=== PATIENT | female | born 1995 | race Caucasian/White ===

== ENCOUNTER 2021-02-23 02:54 | Emergency (ER) | payer OTHER ==
[2021-02-23 04:55] LABS: HEMOGLOBIN 12.8 gm/dl (12.3-15.3); RED BLOOD COUNT 4.68 M/UL (4.00-5.10); WHITE BLOOD COUNT 9.1 K/UL (4.5-11.0)
[2021-02-23 05:25] LABS: BUN/CREATININE RATIO 11 (0-10)
[2021-02-23 08:42] LABS: BORDETELLA PARAPERTUSSIS Not Detected (Not Detectd); BORDETELLA PERTUSSIS Not Detected (Not Detectd); CHLAMYDIA PNEUMONIAE Not Detected (Not Detectd); CORONAVIRUS HKU1 Not Detected (Not Detectd); CORONAVIRUS NL63 Not Detected (Not Detectd); CORONAVIRUS OC43 Not Detected (Not Detectd); CORONOAVIRUS 229E Not Detected (Not Detectd); HUMAN METAPNEUMOVIRUS Not Detected (Not Detectd); INFLUENZA A Not Detected (Not Detectd); INFLUENZA B Not Detected (Not Detectd); MYCOPLASMA PNEUMONIAE Not Detected (Not Detectd); PARAINFLUENZA VIRUS 1 Not Detected (Not Detectd); PARAINFLUENZA VIRUS 2 Not Detected (Not Detectd); PARAINFLUENZA VIRUS 3 Not Detected (Not Detectd); PARAINFLUENZA VIRUS 4 Not Detected (Not Detectd); RESPIRATORY SYNCYTIAL VIRUS Not Detected (Not Detectd)
[2021-02-23] MEDS ORDERED: BACTRIM DS TAB1 EACH PO (09:44)
[2021-02-23 10:20] LABS: SARS-CoV-2 NOT DETECTED (Not Detectd)
[2021-02-23 10:21] LABS: HUMAN RHINOVIRUS/ENTEROVIRUS DETECTED (Not Detectd)
[2021-02-23 17:55] LABS: ACINETOBACTER BAUMANNII Not Detected (Negative); CANDIDA ALBICANS Not Detected (Negative); CANDIDA KRUSEI Not Detected (Negative); CANDIDA TROPICALIS Not Detected (Negative); ENTEROCOCCUS Not Detected (Negative); ESCHERICHIA COLI Not Detected (Negative); HAEMOPHILUS INFLUENZAE Not Detected (Negative); KLEBSIELLA OXYTOCA Not Detected (Negative); KLEBSIELLA PNEUMONIAE Not Detected (Negative); KPC-CARBAPENEM-RESISTANCE GENE Not Detected (Negative); PROTEUS Not Detected (Negative); PSEUDOMONAS AERUGINOSA Not Detected (Negative); SERRATIA MARCESANS Not Detected (Negative); STREP AGALACTIAE (GROUP B) Not Detected (Negative); STREP PYOGENES (GROUP A) Not Detected (Negative); STREPTOCOCCUS Not Detected (Negative); vanA/B (VANCOMYCIN RESIST GENE Not Detected (Negative)
[2021-02-23 19:14] LABS: mecA (METHICILLIN RESIST GENE DETECTED (Negative)
[2021-02-23 19:15] LABS: STAPHYLOCOCCUS DETECTED (Negative); STAPHYLOCOCCUS AUREUS DETECTED (Negative)
== END 2021-02-23 10:10 | disposition home or self-care (01) ==
LOC: ER1 02:54
PROVIDERS: Emergency Medicine; Physician Assistant Medical
DX: N39.0 Urinary tract infection, site not specified (principal); Z20.822 Contact with and (suspected) exposure to COVID-19
CPT/HCPCS: 70450; 80053; 81001; 83605; 84703; 85025; 85652; 86140; 87040; 87077; 87150; 87186; 87633; 96374; 96375; 99284; J1885; J2405; J7030

== ENCOUNTER 2021-02-24 16:26 | Inpatient (IN) | payer OTHER ==
[~2021-02-24] VITALS: Ht 157.5 cm; Wt 56.7 kg
[~2021-02-24 16:26] MED LIST: BACTRIM DS TAB1 EACH PO
[2021-02-24 19:24] LABS: HEMOGLOBIN 13.2 gm/dl (12.3-15.3); RED BLOOD COUNT 4.83 M/UL (4.00-5.10); WHITE BLOOD COUNT 10.1 K/UL (4.5-11.0)
[2021-02-24 19:50] LABS: BUN/CREATININE RATIO 15 (0-10)
[2021-02-25 05:07] LABS: BUN/CREATININE RATIO 10 (0-10)
[2021-02-25 09:59] LABS: BUN/CREATININE RATIO 12 (0-10)
[2021-02-25] MEDS ORDERED: PROAIR HFA8.5 GM INH (10:14)
--- NOTE | 2021-02-25 16:59 | NUR ---
WHEN PATIENT ARRIVED TO FLOOR HER TEMPERATURE WAS 102.3,PATIENT HAD BEEN GIVEN TYLENOL PRIOR TO ARRIVING TO FLOOR. PATIENTS ROOM WAS COOLED DOWN, BLANKETS UNCOVERED, AND PATIENT WANTED TO TAKE A SHOWER, TEMPERATURE RECHECKED ONE HOUR LATER AND WAS 98.2. WILL CONTINUE TO MONITOR. DR. ARANGO MEDICAL STUDENT WAS MADE AWARE OF WHAT HAPPENED AND SAID HE WOULD TELL DR. JUNG.
--- NOTE | 2021-02-25 17:17 | NUR ---
DR. JUNG MADE AWARE OF PATIENT HAVING AN ELEVATED TEMP WHEN ARRIVING TO THE FLOOR AND IT HAD RESOLVED OVER AN HOUR PERIOD AND WAS NOW 98.2 DR. JUNG ALSO MADE AWARE OF THE FAMILY CONCERNS OF MENNINGITIS.
--- NOTE | 2021-02-25 19:46 | NUR ---
UPON ARRIVING TO THE FLOOR TO GET REPORT, PT HAD ORDERS TO BE TRANSFERRED TO PCU. APPROX. 1909: SPOKE WITH MANUFACTURING ACCOUNTANT REGARDING UPDATE ON PCU BED. APPROX. 1916: ATTEMPTED TO CALL REPORT TO PCU. . 1926: CALLED REPORT TO SANTI IN PCU. PT BEING TRANSFERRED TO ROOM 6109. APPROX. 1945: PT TRANSPORTED TO PCU, ROOM 6109, BY RESOURCE RN AND CERAMIC DESIGN ENGINEER. PT STABLE AT THE TIME OF TRANSFER.
[2021-02-26 04:55] LABS: RED BLOOD COUNT 4.13 M/UL (4.00-5.10); WHITE BLOOD COUNT 5.8 K/UL (4.5-11.0)
[2021-02-26 04:58] LABS: BUN/CREATININE RATIO 12 (0-10)
[2021-02-27 04:34] LABS: HEMOGLOBIN 11.3 gm/dl (12.3-15.3); RED BLOOD COUNT 4.28 M/UL (4.00-5.10)
[2021-02-27 04:37] LABS: WHITE BLOOD COUNT 7.5 K/UL (4.5-11.0)
[2021-02-27 05:01] LABS: BUN/CREATININE RATIO 12 (0-10)
--- NOTE | 2021-02-27 09:45 | NUR ---
CONSULT CALLED TO DR KRUGER THIS AM. ARRIVES TO SEE PATIENT AND STATES THAT HE SPOKE WITH DR JARRETT.
[2021-02-28 03:55] LABS: HEMOGLOBIN 11.1 gm/dl (12.3-15.3); RED BLOOD COUNT 4.23 M/UL (4.00-5.10); WHITE BLOOD COUNT 6.1 K/UL (4.5-11.0)
[2021-02-28 04:58] LABS: BUN/CREATININE RATIO 15 (0-10)
[2021-03-01 09:13] LABS: HBSAG SCREEN Negative (Negative); HEP B CORE AB, TOT Negative (Negative); HEP C VIRUS AB >11.0 (0.0-0.9)
[2021-03-02 03:55] LABS: WHITE BLOOD COUNT 6.1 K/UL (4.5-11.0)
[2021-03-02 03:58] LABS: RED BLOOD COUNT 3.73 M/UL (4.00-5.10)
[2021-03-02 04:15] LABS: BUN/CREATININE RATIO 13 (0-10)
[2021-03-03 03:41] LABS: HEMOGLOBIN 9.7 gm/dl (12.3-15.3); RED BLOOD COUNT 3.68 M/UL (4.00-5.10); WHITE BLOOD COUNT 6.1 K/UL (4.5-11.0)
[2021-03-03 03:58] LABS: BUN/CREATININE RATIO 14 (0-10)
[2021-03-03] MEDS ORDERED: LOPRESSOR 25 MG25 MG PO (20:51)
[2021-03-03] MEDS ORDERED: BUDESONIDE0.5 MG/2 M NEB (20:51)
[2021-03-03] MEDS ORDERED: IPRAT-ALBUT 0.5-3 ML NEB (20:51)
[2021-03-03] MEDS ORDERED: DOCUSATE SODIU100 MG PO (20:51)
[2021-03-03] MEDS ORDERED: THERAGRAN M TAB1 EA PO (20:51)
[2021-03-03] MEDS ORDERED: FAMOTIDINE20 MG PO (20:51)
[2021-03-03] MEDS ORDERED: HYDROCODON-ACE1 EAC2 PO (20:51)
[2021-03-03] MEDS ORDERED: ACETAMINOPHEN500 MG PO (20:51)
[2021-03-03] MEDS ORDERED: UNASYN 3 GM VIAL3 GM IV (20:51)
[2021-03-03] MEDS ORDERED: CYCLOBENZAPRINE10 MG PO (20:51)
[2021-03-03] MEDS ORDERED: CUBICIN 500 MG500 MG IV (20:51)
[2021-03-03] MEDS ORDERED: POLYETHYLENE GL17 GM PO (20:51)
[2021-03-04 04:10] LABS: HEMOGLOBIN 10.4 gm/dl (12.3-15.3); RED BLOOD COUNT 3.98 M/UL (4.00-5.10); WHITE BLOOD COUNT 5.5 K/UL (4.5-11.0)
[2021-03-04 04:39] LABS: BUN/CREATININE RATIO 15 (0-10)
== END 2021-03-05 14:22 | disposition short-term general hospital (02) | DRG 872 ==
LOC: ER1 16:26 → CDU 23:47 → MED SURG 4 23:47 → PROG CARE 23:47 → MED SURG 4 02-25 14:38 → PROG CARE 02-25 20:02
PROVIDERS: Internal Medicine Infectious Disease; Physician Assistant; ADMIT Internal Medicine
PROC: B24BZZZ Ultrasonography of Heart with Aorta (ICD-10-PCS; principal; 2021-02-26)
DX: A41.02 Sepsis due to Methicillin resistant Staphylococcus aureus (principal); E87.2 Acidosis; Z20.822 Contact with and (suspected) exposure to COVID-19; E87.1 Hypo-osmolality and hyponatremia; I82.C11 Acute embolism and thrombosis of right internal jugular vein; R65.20 Severe sepsis without septic shock; R00.0 Tachycardia, unspecified; D69.6 Thrombocytopenia, unspecified; B19.20 Unspecified viral hepatitis C without hepatic coma; I37.1 Nonrheumatic pulmonary valve insufficiency; J02.9 Acute pharyngitis, unspecified; Z88.1 Allergy status to other antibiotic agents; Z88.6 Allergy status to analgesic agent; Z87.891 Personal history of nicotine dependence; Z87.440 Personal history of urinary (tract) infections
CPT/HCPCS: ECHO; 36415; 70490; 71045; 71046; 71275; 80048; 80053; 80307; 81001; 82436; 82533; 82550; 82553; 83605; 83690; 83735; 83935; 84133; 84300; 84439; 84443; 84484; 85025; 85610; 85652; 86140; 86704; 86706; 86708; 86803; 87040; 87077; 87081; 87086; 87186; 87340; 87880; 93005; 93306; 94640; 94760; 96372; 96374; 96375; 99285; J0295; J0878; J1650; J1885; J2270; J2360; J2405; J3370; J3475; J7070; Q9967; U0002